=== PATIENT | female | born 1995 | race Caucasian/White ===

== ENCOUNTER → 2019-09-02 14:02 | Outpatient (BNVA) | payer MEDICAID, SELFPAY | PROVIDERS: Family Provider Nurse Practitioner Family; PCP Nurse Practitioner Family; Visit Provider Psychiatry & Neurology Psychiatry | DX: F41.1 Generalized anxiety disorder (principal); F41.0 Panic disorder [episodic paroxysmal anxiety]; F33.1 Major depressive disorder, recurrent, moderate | CPT/HCPCS: 99204 ==

== ENCOUNTER → 2020-01-27 09:34 | Outpatient (BNVA) | payer MEDICAID, SELFPAY | PROVIDERS: Family Provider Nurse Practitioner Family; PCP Nurse Practitioner Family; Visit Provider Nurse Practitioner Psychiatric/Mental Health | DX: F33.1 Major depressive disorder, recurrent, moderate (principal); F41.1 Generalized anxiety disorder; F41.0 Panic disorder [episodic paroxysmal anxiety] | CPT/HCPCS: 99213 ==

== ENCOUNTER → 2020-02-04 09:45 | Outpatient (BNVA) | payer MEDICAID, SELFPAY | PROVIDERS: Family Provider Nurse Practitioner Family; PCP Nurse Practitioner Family; Visit Provider Psychiatry & Neurology Psychiatry | DX: F33.1 Major depressive disorder, recurrent, moderate (principal); F41.0 Panic disorder [episodic paroxysmal anxiety]; F41.1 Generalized anxiety disorder | CPT/HCPCS: 99213 ==

== ENCOUNTER → 2020-03-10 08:23 | Outpatient (BNVA) | payer MEDICAID, SELFPAY | PROVIDERS: Family Provider Nurse Practitioner Family; PCP Nurse Practitioner Family; Visit Provider Psychiatry & Neurology Psychiatry | DX: F33.1 Major depressive disorder, recurrent, moderate (principal); F41.0 Panic disorder [episodic paroxysmal anxiety]; F41.1 Generalized anxiety disorder | CPT/HCPCS: 99213 ==

== ENCOUNTER → 2020-04-06 09:21 | Outpatient (BNVA) | payer MEDICAID, SELFPAY | PROVIDERS: Family Provider Nurse Practitioner Family; PCP Nurse Practitioner Family; Visit Provider Psychiatry & Neurology Psychiatry | DX: F33.1 Major depressive disorder, recurrent, moderate (principal); F41.0 Panic disorder [episodic paroxysmal anxiety]; F41.1 Generalized anxiety disorder | CPT/HCPCS: 99213 ==

== ENCOUNTER → 2020-04-18 13:15 | Outpatient (BNVA) | payer MEDICAID, SELFPAY | PROVIDERS: Family Provider Nurse Practitioner Family; PCP Nurse Practitioner Family; Visit Provider Registered Nurse | DX: N39.0 Urinary tract infection, site not specified (principal) | CPT/HCPCS: 81000 ==

== ENCOUNTER → 2020-05-17 09:30 | Outpatient (BNVA) | payer MEDICAID, SELFPAY | PROVIDERS: Family Provider Nurse Practitioner Family; PCP Nurse Practitioner Family; Visit Provider Registered Nurse | DX: N39.0 Urinary tract infection, site not specified (principal); R10.2 Pelvic and perineal pain | CPT/HCPCS: 81000; 87070; 87205 ==

== ENCOUNTER → 2020-05-19 08:51 | Outpatient (BNVA) | payer MEDICAID, SELFPAY | PROVIDERS: Family Provider Nurse Practitioner Family; PCP Nurse Practitioner Family; Visit Provider Psychiatry & Neurology Psychiatry | DX: F33.1 Major depressive disorder, recurrent, moderate (principal); F41.0 Panic disorder [episodic paroxysmal anxiety]; F41.1 Generalized anxiety disorder | CPT/HCPCS: 99213 ==

== ENCOUNTER → 2020-05-25 16:30 | Outpatient (BNVA) | payer MEDICAID, SELFPAY | PROVIDERS: Family Provider Nurse Practitioner Family; PCP Nurse Practitioner Family; Visit Provider Registered Nurse | DX: R39.11 Hesitancy of micturition (principal); R10.2 Pelvic and perineal pain; N89.8 Other specified noninflammatory disorders of vagina | CPT/HCPCS: 81000; 87070; 87106; 87205; 87491; 87591 ==

== ENCOUNTER → 2020-05-26 00:01 | Outpatient (BNVA) | payer MEDICAID, SELFPAY | PROVIDERS: Family Provider Nurse Practitioner Family; PCP Nurse Practitioner Family; Visit Provider Registered Nurse | DX: R10.2 Pelvic and perineal pain (principal); R39.11 Hesitancy of micturition; N89.8 Other specified noninflammatory disorders of vagina | CPT/HCPCS: 87491; 87591 ==

== ENCOUNTER 2020-05-30 13:00 | Outpatient (CLI) | payer MEDICAID, SELFPAY | END 2020-05-30 13:01 | disposition home or self-care (01) | LOC: LAB 04-12 09:01 | PROVIDERS: Family Provider Nurse Practitioner Family; PCP Registered Nurse; Visit Provider Registered Nurse | DX: Z01.89 Encounter for other specified special examinations (principal) | CPT/HCPCS: 87186 ==

== ENCOUNTER → 2020-10-30 12:52 | Outpatient (BNVA) | payer MEDICAID, SELFPAY | PROVIDERS: Family Provider Nurse Practitioner Family; PCP Nurse Practitioner Family; Visit Provider Psychiatry & Neurology Psychiatry | DX: F60.3 Borderline personality disorder (principal); F33.1 Major depressive disorder, recurrent, moderate; F41.0 Panic disorder [episodic paroxysmal anxiety]; F41.1 Generalized anxiety disorder | CPT/HCPCS: 99214 ==

== ENCOUNTER → 2022-03-19 08:42 | Outpatient (BNVA) | payer MEDICAID, SELFPAY | PROVIDERS: Family Provider Nurse Practitioner Family; PCP Registered Nurse; Visit Provider Registered Nurse | DX: R05.9 Cough, unspecified (principal); R53.83 Other fatigue; R63.4 Abnormal weight loss; R68.82 Decreased libido; R05.1 Acute cough; R23.3 Spontaneous ecchymoses; Z20.822 Contact with and (suspected) exposure to COVID-19 | CPT/HCPCS: 80053; 81000; 82607; 83550; 84443; 85025; 87426 ==

== ENCOUNTER → 2022-03-28 09:46 | Outpatient (BNVA) | payer MEDICAID, SELFPAY | PROVIDERS: Family Provider Nurse Practitioner Family; PCP Registered Nurse; Visit Provider Nurse Practitioner Family | DX: E61.1 Iron deficiency (principal); J40 Bronchitis, not specified as acute or chronic; Z72.0 Tobacco use; F12.90 Cannabis use, unspecified, uncomplicated; R53.83 Other fatigue | CPT/HCPCS: 82728; 83540; 83550; 84439; 84443; 85025 ==

== ENCOUNTER → 2023-02-20 11:11 | Outpatient (BNVA) | payer MEDICAID, SELFPAY | PROVIDERS: Family Provider Nurse Practitioner Family; PCP Registered Nurse; Visit Provider Registered Nurse | DX: R39.15 Urgency of urination (principal) | CPT/HCPCS: 81000 ==

== ENCOUNTER → 2023-02-21 10:39 | Outpatient (BNVA) | payer MEDICAID, SELFPAY | PROVIDERS: Family Provider Nurse Practitioner Family; PCP Registered Nurse; Visit Provider Registered Nurse | DX: Z20.2 Contact with and (suspected) exposure to infections with a predominantly sexual mode of transmission | CPT/HCPCS: 87491; 87591 ==

== ENCOUNTER 2023-03-14 09:58 | Outpatient (CLI) | payer MEDICAID, SELFPAY ==
--- NOTE | 2023-03-14 10:00 | US_ITS ---
WS: [id number] US pelv w/transvag [id number] HISTORY: N94.10 - Unspecified dyspareunia COMPARISON: None available. Uterus: 8.5 cm x 5.8 cm x 4.2 cm. Normal size anteverted uterus. No fibroid or mass. Endometrium: 0.4 cm. Normal. Right ovary: 4.0 cm x 2.3 cm x 2.4 cm. Minimally enlarged with normal vascularity, no cystic or solid masses. Numerous small peripheral follicles. Left ovary: 4.4 cm x 3.3 cm x 1.8 cm. Minimally enlarged with normal vascularity, no cystic or solid masses. Numerous small peripheral follicles. No free fluid in the cul-de-sac. IMPRESSION: 1. Normal uterus and endometrium. 2. There are numerous small peripheral follicles scattered throughout each ovary. Ovaries are minimal ly prominent in size. The number of follicles is approaching the number typically associated with pily ycystic ovarian syndrome.
== END 2023-03-14 09:59 | disposition home or self-care (01) ==
PROVIDERS: Family Provider Nurse Practitioner Family; PCP Registered Nurse; Visit Provider Registered Nurse
DX: N94.10 Unspecified dyspareunia (principal)
CPT/HCPCS: 76830; 76856

== ENCOUNTER → 2023-04-07 13:57 | Outpatient (BNVA) | payer MEDICAID, SELFPAY | PROVIDERS: Family Provider Nurse Practitioner Family; PCP Registered Nurse; Visit Provider Registered Nurse | DX: N39.0 Urinary tract infection, site not specified (principal); E61.1 Iron deficiency | CPT/HCPCS: 81000; 83540; 85025 ==

== ENCOUNTER → 2023-09-16 10:46 | Outpatient (BNVA) | payer MEDICAID, SELFPAY | PROVIDERS: Family Provider Nurse Practitioner Family; PCP Registered Nurse; Visit Provider Registered Nurse | DX: F41.1 Generalized anxiety disorder (principal); E61.1 Iron deficiency; R63.4 Abnormal weight loss | CPT/HCPCS: 80053; 82607; 83036; 84443; 85025 ==

== ENCOUNTER → 2023-11-19 14:36 | Outpatient (BNVA) | payer MEDICAID, SELFPAY | PROVIDERS: Family Provider Nurse Practitioner Family; PCP Registered Nurse; Visit Provider Nurse Practitioner Family | DX: N39.0 Urinary tract infection, site not specified (principal) | CPT/HCPCS: 81000; 87086 ==

== ENCOUNTER → 2023-12-18 15:10 | Outpatient (CLI) | payer MEDICAID, SELFPAY ==
--- NOTE | 2023-12-18 15:15 | USR_ITS ---
PROCEDURE INFORMATION: Exam: US Retroperitoneal; Complete; Kidneys and Bladder Exam date and time: 12/18/2023 3:18 PM Age: 28 years old Clinical indication: Condition or disease; Other: UTI; Additional info: N39.0 - urinary tract infection, site not specified TECHNIQUE: Imaging protocol: Real-time ultrasound of the retroperitoneum with image documentation. Complete exam focused on the kidneys and bladder. COMPARISON: US pelv w/transvag [id number] 03/14/2023 10:35 AM FINDINGS: Right kidney: Normal. No stones. No hydronephrosis. Left kidney: Normal. No stones. No hydronephrosis. Urinary bladder: Unremarkable. Bladder volume was not obtained or measured. US/US renal BI* [id number] IMPRESSION: Unremarkable kidneys and bladder.
== END | disposition home or self-care (01) ==
LOC: RAD 15:11
PROVIDERS: Family Provider Nurse Practitioner Family; PCP Registered Nurse; Visit Provider Registered Nurse
DX: N39.0 Urinary tract infection, site not specified (principal)
CPT/HCPCS: 76770

== ENCOUNTER → 2024-01-16 11:05 | Outpatient (BNVA) | payer MEDICAID, SELFPAY | PROVIDERS: Family Provider Nurse Practitioner Family; PCP Registered Nurse; Visit Provider Registered Nurse | DX: N39.0 Urinary tract infection, site not specified (principal) | CPT/HCPCS: 81000 ==

== ENCOUNTER → 2024-06-30 10:01 | Outpatient (BNVA) | payer MEDICAID, SELFPAY | PROVIDERS: Family Provider Nurse Practitioner Family; PCP Registered Nurse; Visit Provider Registered Nurse | DX: Z13.1 Encounter for screening for diabetes mellitus (principal); I10 Essential (primary) hypertension; N89.8 Other specified noninflammatory disorders of vagina; E28.2 Polycystic ovarian syndrome; E03.9 Hypothyroidism, unspecified; R39.11 Hesitancy of micturition | CPT/HCPCS: 80053; 81000; 83036; 84403; 84443; 85025; 87070; 87205; 87491; 87591; 87624; 87661 ==

== ENCOUNTER → 2024-09-01 09:46 | Outpatient (BNVA) | payer MEDICAID, SELFPAY | PROVIDERS: Family Provider Nurse Practitioner Family; PCP Registered Nurse; Visit Provider Registered Nurse | DX: N39.0 Urinary tract infection, site not specified (principal) | CPT/HCPCS: 81000; 87086 ==

== ENCOUNTER → 2024-10-19 11:44 | Outpatient (BNVA) | payer MEDICAID, SELFPAY | PROVIDERS: PCP Registered Nurse; Visit Provider Registered Nurse | DX: N89.8 Other specified noninflammatory disorders of vagina (principal); N39.0 Urinary tract infection, site not specified | CPT/HCPCS: 81000; 87070; 87086; 87205; 87491; 87591 ==